=== PATIENT | female | born 1950 | race Caucasian/White ===

== ENCOUNTER 2016-12-21 13:58 | Emergency (ER) | payer BC ==
[~2016-12-21] VITALS: Ht 162.6 cm; Wt 71.9 kg
[~2016-12-21 13:58] MED LIST: CALCTAB7 PO; CHOL200027 PO; CLB/200 PO; CLR10 PO; ESCI1TAB10 PO; PRAM0.129 PO; PROC1TAB5 PO
[2016-12-21 14:02] VITALS: TEMP 36.7; Ht 162.6 cm; Wt 71.9 kg
[2016-12-21 14:30] VITALS: O2SAT 100
--- NOTE | 2016-12-21 14:32 | EMERGENCY ROOM VISIT NOTE ---
History Report prepared by Vitaliy: Celio Umanzor Under the Supervision of: Dr. Song Coker M.D. First contact with patient: 14:25 Chief Complaint: SHORTNESS OF BREATH Stated Complaint: SOB, HEART RACING, HAD LAST CHEMO TUES Nursing Triage Summary: PT HERE WITH SOB SINCE THIS AM. PT STATES HAS HAD OCCASIONAL SOB WITH CHEMO TXS. HAS BEEN TAKING TREATMENTS SINCE AUGUST, JUST HAD LAST ONE THIS WEEK. HX OF RIGHT BREAST CA. LUMPECTOMY DENIES PAIN WITH DEEP BREATH. DENIES SWELLING IN LEGS. History of Present Illness The patient is a 66 year old female who presents to the Emergency Room with complaints of persistent shortness of breath that started this morning. The patient suffers from right sided breast cancer. She has been receiving chemotherapy treatments since August. Her last chemotherapy treatment was 4 days ago. She notes that she has had occasional shortness of breath with chemotherapy in the past. The patient denies chest pain, swelling in legs, urinary symptoms, difficulty with bowel movements, abdominal pain, and any additional associated symptoms. Source of History: patient Onset: This morning Position: other (Respiratory system ) Timing: other (Persistent ) Modifying Factors (Worsening): other (None) Associated Symptoms: No abdominal pain, No chest pain, No urinary symptoms Review of Systems All systems have been listed, reviewed, and are negative other than those previously mentioned. Please see Additional Medical History Sheet. Past Medical & Surgical Medical Problems: (1) Breast cancer Surgical Problems: (1) H/O: hysterectomy (2) History of total right knee replacement Family History No significant family history Social History Smoking Status: Never Smoker Alcohol Use: none Drug Use: none Marital Status: Housing Status: lives with significant other Occupation Status: unemployed Current/Historical Medications Scheduled Calcium Carbonate-Vitamin D W/ (Caltrate 600 Plus), 2 TABS PO DAILY Celecoxib (Celecoxib), 200 MG PO DAILY Cholecalciferol (Vitamin D-3), 2,000 INTER.UNIT PO DAILY Citalopram (Citalopram Hydrobromide), 40 MG PO DAILY Loratadine (Claritin), 10 MG PO DAILY Pramipexole Dihydrochloride (Pramipexole Dihydrochlori), 0.25 MG PO BID Scheduled PRN Prochlorperazine Maleate (Compazine), 10 MG PO Q6H PRN for Nausea or Vomiting Allergies Coded Allergies: Latex1 -Allergic Contact Dermititis (Verified Allergy, Severe, RASH, 09/10) SEVERE INFLAMMATION TO HELEN AREA FROM LATEX ALFRED CATHETER Bacitracin (Verified Allergy, Unknown, local skin irritation, 09/10/16) 'bubbled skin' Neomycin (Verified Allergy, Unknown, local skin irritation, 09/10/16) 'bubbled skin' Polymyxin B (Verified Allergy, Unknown, local skin irritation, 09/10/16) 'bubbled skin' Penicillins (Verified Adverse Reaction, Mild, n/v, 03/29/15) Physical Exam Vital Signs Date Time Temp Pulse Resp B/P Pulse Ox O2 Delivery O2 Flow Rate FiO2 12/21/16 16:54 115 16 118/79 98 Room Air 12/21/16 14:34 111 12/21/16 14:31 114 25 143/67 100 Room Air 12/21/16 14:30 100 Room Air 12/21/16 14:02 36.7 111 18 117/69 99 Room Air Physical Exam GENERAL: Patient awake, alert, oriented x 3. Patient follows commands. Patient does not appear toxic. Patient is adequately hydrated and well- nourished. SKIN: No erythema, pallor, cyanosis or rash HEENT: Normal head, pupils equal, reactive to light and accommodation. Ears normal. Oral cavity and posterior pharynx appear normal. Neck: Without adenopathy, no neck vein distention. LUNGS: Clear to auscultation. No wheezes, no rales, no rhonchi. HEART: No murmurs. No gallops. No rubs ABDOMEN: No masses, no rebound, no hepatomegaly or splenomegaly. EXTREMITIES: No signs of trauma. No pedal or pretibial edema. No calf or thigh tenderness. NEUROLOGIC: Cranial nerves II-XII within normal limits. No gross motor sensory function deficits. Medical Decision & Procedures ER Provider Diagnostic Interpretation: Radiology results as stated below per my review and radiologist interpretation: TWO VIEW CHEST CLINICAL HISTORY: Dyspnea. FINDINGS: PA and lateral chest radiographs are compared to study dated 09/10/2016. Correlation is made with chest CT dictated 08/09/2014. A left subclavian central venous infusion port is unchanged in position. The cardiomediastinal silhouette is unremarkable. Chronic interstitial thickening is unchanged. No airspace consolidation or pleural effusion is identified. There is no pneumothorax. The skeletal structures are osteopenic. The bony thorax appears intact. IMPRESSION: No active disease in the chest. Electronically signed by: Estuardo Angulo M.D. 12/21/2016 4:48 PM Dictated Date/Time: 12/21/2016 4:47 PM CHEST CTA for PULMONARY ARTERIES CT DOSE: 379.45 mGycm HISTORY: Chest pain dyspnea TECHNIQUE: Multiaxial CT images of the chest were performed following the intravenous administration of contrast to evaluate the pulmonary arteries. Maximal intensity projection images were also obtained. COMPARISON STUDY: 08/09/2014 FINDINGS: There is a normal caliber thoracic aorta with no evidence for dissection. There is no evidence for pulmonary embolus. No pleural effusions. No pneumothorax. The liver and spleen are unremarkable. No mediastinal or hilar lymphadenopathy. The central airways are patent. The lungs are clear. IMPRESSION: No evidence for pulmonary embolus. Electronically signed by: Wilber Gasca M.D. 12/21/2016 4:59 PM Dictated Date/Time: 12/21/2016 4:56 PM Laboratory Results 12/21/16 15:15 Red Blood Count 3.36, Mean Corpuscular Volume 86.9, Mean Corpuscular Hemoglobin 29.5, Mean Corpuscular Hemoglobin Concent 33.9, Mean Platelet Volume 10.3, Neutrophils (%) (Auto) 93.4, Lymphocytes (%) (Auto) 2.5, Monocytes (%) (Auto) 0.7, Eosinophils (%) (Auto) 0.1, Basophils (%) (Auto) 0.2, Neutrophils # (Auto) 30.89, Lymphocytes # (Auto) 0.82, Monocytes # (Auto) 0.22, Eosinophils # (Auto) 0.02, Basophils # (Auto) 0.05 12/21/16 15:15 Test 12/21/16 15:15 12/21/16 15:25 White Blood Count 33.01 K/uL (4.8-10.8) Red Blood Count 3.36 M/uL (4.2-5.4) Hemoglobin 9.9 g/dL (12.0-16.0) Hematocrit 29.2 % (37-47) Mean Corpuscular Volume 86.9 fL (80-100) Mean Corpuscular Hemoglobin 29.5 pg (25-34) Mean Corpuscular Hemoglobin Concent 33.9 g/dl (32-36) Platelet Count 142 K/uL (130-400) Mean Platelet Volume 10.3 fL (7.4-10.4) Neutrophils (%) (Auto) 93.4 % Lymphocytes (%) (Auto) 2.5 % Monocytes (%) (Auto) 0.7 % Eosinophils (%) (Auto) 0.1 % Basophils (%) (Auto) 0.2 % Neutrophils # (Auto) 30.89 K/uL (1.4-6.5) Lymphocytes # (Auto) 0.82 K/uL (1.2-3.4) Monocytes # (Auto) 0.22 K/uL (0.11-0.59) Eosinophils # (Auto) 0.02 K/uL (0-0.5) Basophils # (Auto) 0.05 K/uL (0-0.2) RDW Standard Deviation 54.9 fL (36.4-46.3) RDW Coefficient of Variation 17.3 % (11.5-14.5) Immature Granulocyte % (Auto) 3.1 % Immature Granulocyte # (Auto) 1.01 K/uL (0.00-0.02) Hyposegmented Neutrophils 2+ Prothrombin Time 11.0 SECONDS (9.0-12.0) Prothromb Time International Ratio 1.0 (0.9-1.1) Activated Partial Thromboplast Time 22.9 SECONDS (21.0-31.0) Partial Thromboplastin Ratio 0.9 Anion Gap 9.0 mmol/L (3-11) Est Creatinine Clear Calc Drug Dose 81.5 ml/min Estimated GFR () 106.7 Estimated GFR (Non- 92.1 BUN/Creatinine Ratio 30.0 (10-20) Calcium Level 8.1 mg/dl (8.5-10.1) Total Bilirubin 0.4 mg/dl (0.2-1) Aspartate Amino Transf (AST/SGOT) 17 U/L (15-37) Alanine Aminotransferase (ALT/SGPT) 31 U/L (12-78) Alkaline Phosphatase 147 U/L (45-117) Troponin I 0.022 ng/ml (0-0.045) Total Protein 6.1 gm/dl (6.4-8.2) Albumin 3.3 gm/dl (3.4-5.0) Globulin 2.8 gm/dl (2.5-4.0) Albumin/Globulin Ratio 1.2 (0.9-2) Bedside D-Dimer > 450 ng/mlFEU (0-450) Laboratory results as stated above per my review. ECG Indication: SOB/dyspnea Rate (beats per minute): 107 Rhythm: sinus tachycardia Findings: no acute ischemic change, no ectopy ED Course 1426: Past medical records reviewed. The patient was evaluated in room B12. A complete history and physical examination was performed. 1723: I spoke with Dr. Velasquez (Oncology). He states that the significant elevation of the patient's white blood cell count is consistent with recent treatment of Neupogen. 1731: I discussed the patient's case with the patient and her . They are agreeable with the treatment plan. The patient is ready to be discharged home. Medical Decision Nurses notes reviewed. Medical history sheet reviewed. Differential diagnosis includes but is not limited to: Reaction to chemotherapy, reaction to medication , CHF, pneumonia, pulmonary embolism. The patient is here with shortness of breath. Multiple labs were obtained including a d-dimer which was elevated. CT of her chest was also obtained which revealed no PE. The patient does not have pneumonia. Cardiac markers are normal. EKG reveals no acute findings. The patient's pulse ox is 99-100% on room air. I believe her symptoms are secondary to medication reaction. The patient's white count is markedly elevated which is also related to her Neupogen. I discussed care with Dr. Velasquez over the phone. The patient will follow-up with oncology. Consults Time Called: 172 Consulting Physician: Dr. Velasquez (Oncology) Returned Call: [address] Velasquez (Oncology). He states that the significant elevation of the patient's white blood cell count is consistent with recent treatment of Neupogen. Impression Primary Impression: Medication reaction Additional Impressions: Leukocytosis History of breast cancer Anemia Scribe Attestation The scribe's documentation has been prepared under my direction and personally reviewed by me in its entirety. I confirm that the note above accurately reflects all work, treatment, procedures, and medical decision making performed by me. Departure Information Dispostion Home / Self-Care Referrals Bre Reeves DO (PCP) Balaban, Edward P., D.O. Patient Instructions My [facility] Additional Instructions Continue all of your current medications as prescribed. Follow-up with oncology as scheduled. Problem Qualifiers
[2016-12-21] MEDS ORDERED: CITA40TA4 PO (15:29)
[2016-12-21] MEDS ORDERED: MRP25 PO (15:29)
[2016-12-21] MEDS ORDERED: CELE1CAP30 PO (15:29)
[2016-12-21 15:53] LABS: HEMATOCRIT 29.2 % (37-47); MEAN CELL VOLUME 86.9 fL (80-100); MEAN CORPUSCULAR HEMOGLOBIN 29.5 pg (25-34); MEAN CORPUSCULAR HGB CONC 33.9 g/dl (32-36); MEAN PLATELET VOLUME 10.3 fL (7.4-10.4); PLATELET COUNT 142 K/uL (130-400); RED BLOOD COUNT 3.36 M/uL (4.2-5.4); WHITE BLOOD COUNT 33.01 K/uL (4.8-10.8)
[2016-12-21 15:57] LABS: PARTIAL THROMBOPLASTIN RATIO 0.9
[2016-12-21 16:00] LABS: CALCIUM 8.1 mg/dl (8.5-10.1); CREATININE 0.66 mg/dl (0.60-1.20); POTASSIUM 3.5 mmol/L (3.5-5.1)
[2016-12-21] MEDS ORDERED: OPTIRAY 320 IV PRN (16:00)
[2016-12-21 16:04] LABS: ALB/GLOB RATIO 1.2 (0.9-2)
[2016-12-21 16:22] LABS: BASO % 0.2 %; BASO ABS # 0.05 K/uL (0-0.2); COMPLETE YES; EOS % 0.1 %; HYPOSEGMENTED POLYS 2+; IG% 3.1 %; LYMPH % 2.5 %; LYMPH ABS # 0.82 K/uL (1.2-3.4); MONO % 0.7 %; NEUT % 93.4 %
--- NOTE | 2016-12-21 16:49 | DIAGNOSTIC IMAGING REPORT ---
TWO VIEW CHEST CLINICAL HISTORY: Dyspnea. FINDINGS: PA and lateral chest radiographs are compared to study dated 09/10/2016. Correlation is made with chest CT dictated 08/09/2014. A left subclavian central venous infusion port is unchanged in position. The cardiomediastinal silhouette is unremarkable. Chronic interstitial thickening is unchanged. No airspace consolidation or pleural effusion is identified. There is no pneumothorax. The skeletal structures are osteopenic. The bony thorax appears intact. IMPRESSION: No active disease in the chest. Electronically signed by: Estuardo Angulo M.D. 12/21/2016 4:48 PM Dictated Date/Time: 12/21/2016 4:47 PM
--- NOTE | 2016-12-21 17:01 | DIAGNOSTIC IMAGING REPORT ---
CHEST CTA for PULMONARY ARTERIES CT DOSE: 379.45 mGycm HISTORY: Chest pain dyspnea TECHNIQUE: Multiaxial CT images of the chest were performed following the intravenous administration of contrast to evaluate the pulmonary arteries. Maximal intensity projection images were also obtained. COMPARISON STUDY: 08/09/2014 FINDINGS: There is a normal caliber thoracic aorta with no evidence for dissection. There is no evidence for pulmonary embolus. No pleural effusions. No pneumothorax. The liver and spleen are unremarkable. No mediastinal or hilar lymphadenopathy. The central airways are patent. The lungs are clear. IMPRESSION: No evidence for pulmonary embolus. Electronically signed by: Wilber Gasca M.D. 12/21/2016 4:59 PM Dictated Date/Time: 12/21/2016 4:56 PM
[2016-12-21 17:58] VITALS: BP 126/82; PULSE 98; O2SAT 98
[2017-04-05] MEDS ORDERED: FMR25 PO (08:33)
== END 2016-12-21 17:59 | disposition home or self-care (01) ==
LOC: C.EDB 14:00
DX: T88.7XXA Unspecified adverse effect of drug or medicament, initial encounter (principal); D72.829 Elevated white blood cell count, unspecified; C50.911 Malignant neoplasm of unspecified site of right female breast; D64.9 Anemia, unspecified; Z90.710 Acquired absence of both cervix and uterus; Z96.651 Presence of right artificial knee joint; Z91.040 Latex allergy status; Z88.1 Allergy status to other antibiotic agents; Z88.0 Allergy status to penicillin

== ENCOUNTER → 2016-12-28 | Outpatient (CLI) | payer BC ==
[~2016-12-28] MED LIST changes: +CELE1CAP30 PO; +CITA40TA4 PO; -CLB/200 PO; -ESCI1TAB10 PO; +FMR25 PO; +GADAVIST IV PRN; +MRP25 PO; -PRAM0.129 PO
--- NOTE | 2016-12-31 14:01 | MAMMOGRAPHY REPORT ---
BREAST MRI OF BOTH BREASTS : 12/28/2016 CLINICAL HISTORY: History of right breast cancer in the right 4:00 breast status post lumpectomy Oc tober 2015 and chemotherapy. She also had a discordant right 12:00 biopsy, with surgical excision O ct2015 yielding a radial sclerosing lesion and other benign findings. 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 COMPARISON: Comparison is made to exams dated: 07/10/2016 mammogram, 06/27/2016 mammogram, 07/02/2016 ultrasound, 07/10/2016 ultrasound biopsy, and 05/30/2015 mammogram - [facility]. Technique: The patient was placed prone in a dedicated breast imaging coil. Precontrast axial T1-we ighted, axial T2-weighted fat saturation, and axial T1-weighted fat saturation images were obtained. After the administration of 7 mL of Gadavist IV contrast, sequential T1-weighted fat saturation im ages were obtained. Subtraction images were obtained of the dynamic contrast enhanced sequences, an d 3-D reformations were performed. The Webflow software was used for kinetic analysis. Findings: Right breast: There is mild background parenchymal enhancement. There are expected postsurgical karina nges in the right breast from benign excisional biopsy in the right 12:00 breast and lumpectomy in t he right lower inner quadrant posteriorly. There is a circumscribed 1.8 cm mass which is mixed T2 h yperintensity and T1 hypointensity containing an internal fluid-fluid level, without postcontrast en hancement, consistent with a small postsurgical hematoma (series 4 image 26). There is also an gary gated T2 hyperintense, nonenhancing fluid collection measuring 2.3 x 0.7 cm at the lumpectomy bed in the right lower inner quadrant, consistent with a small postsurgical hematoma/seroma (series 4 imag e 43). In the right breast at 6:00 middle depth, there are at least 3 foci of enhancement which are in a so mewhat linear distribution extending towards the nipple. The most posterior focus measures 5 mm, th e middle focus measures 4 mm, and the most anterior focus measures 3 mm (series 501 images 77-82). The total extent of the foci measures approximately 2.5 cm in AP dimension. The foci demonstrate mi xed persistent and plateau kinetics. Left breast: There is mild background parenchymal enhancement. There are no suspicious enhancing ma sses or areas of abnormal enhancement within the left breast. There are postsurgical changes in the right axilla, without evidence of axillary adenopathy bilatera lly. The chest wall structures are negative. The visualized extramammary soft tissues are grossly unremarkable. IMPRESSION: ACR BI-RADS CATEGORY 0: INCOMPLETE EVALUATION: NEED ADDITIONAL IMAGING EVALUATION 1. Expected postsurgical changes in the right lower inner quadrant from prior lumpectomy and right 12:00 breast from prior benign excisional biopsy. 2. At least 3 enhancing foci in the right breast at 6:00 which are linear in distribution. The foc i are indeterminate for malignancy. Recommend diagnostic tomosynthesis mammograms of the right [address] st and second look ultrasound for further evaluation. If a corresponding abnormality is seen on ult rasound, ultrasound guided core needle biopsy could be performed at that time (45 minute time slot). If a corresponding abnormality is not seen on ultrasound/mammograms, then MRI guided biopsy may be needed. 3. No MRI evidence of malignancy in the left breast. Pamela Erwin M.D. 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
== END | disposition home or self-care (01) ==
LOC: C.MRI 10:42
PROVIDERS: ATTEND Surgery
DX: C50.311 Malignant neoplasm of lower-inner quadrant of right female breast (principal); N64.89 Other specified disorders of breast

== ENCOUNTER → 2017-01-09 | Outpatient (CLI) | payer BC ==
[~2017-01-09] MED LIST changes: -GADAVIST IV PRN
--- NOTE | 2017-01-09 10:06 | Discharge Instructions ---
Discharge Instructions Procedure Procedure Date: Jan 09, 2017. Reason for visit: Right Enhancing Foci/2ND Look Us Possible Bx. Discharge Discharge Date: Jan 09, 2017. Discharge Diagnosis: post right breast ultrasound guided core biopsy x 2 Instructions Activity Recommendations: Additional Limitations (see below) Return to School/Work: no limitations Recommended Home Diet: No Limitations Provider Instructions: ACTIVITY RECOMMENDATIONS: * No lifting, pushing, pulling or exercising the affected side for three days. RETURN TO SCHOOL/WORK: * You may return to work/school after the procedure, but do not perform any strenuous activities for 24 to 48 hours. MEDICATIONS: * Tylenol (two 325 mg) every four to six hours if needed for mild pain (if not allergic to Tylenol). DIET: * Resume previous diet. SPECIAL CARE INSTRUCTIONS: * Keep biopsy site dry for 24 hours. May shower after 24 hours, but do not soak (bathe) incision. * May remove Tegaderm (plastic patch) tomorrow AFTER showering. * Leave the steri-strips on for one week. Allow the steri-strips to fall off by themselves. If not off after one week, you may remove them. You may place a Bandaid crosswise over the strips, if desired. * Apply ice 10 minutes on and 10 minutes off as needed. * Wear a bra at bedtime to sleep more comfortably for 2-3 days. * Your referring physician should have the results after approximately 5 to 7 business days. * Call for unusual bleeding, fever, drainage, etc or if you have any questions call [phone] during normal business hours or after hours call Dr Mishra, . FOLLOW UP VISIT: Follow-up with Referring Physician as scheduled. Allergies Coded Allergies: Latex1 -Allergic Contact Dermititis (Verified Allergy, Severe, RASH, 09/10) SEVERE INFLAMMATION TO HELEN AREA FROM LATEX ALFRED CATHETER Bacitracin (Verified Allergy, Unknown, local skin irritation, 09/10/16) 'bubbled skin' Neomycin (Verified Allergy, Unknown, local skin irritation, 09/10/16) 'bubbled skin' Polymyxin B (Verified Allergy, Unknown, local skin irritation, 09/10/16) 'bubbled skin' Penicillins (Verified Adverse Reaction, Mild, n/v, 03/29/15) Rocco Begum Recommendations: Call your doctor if: * Temperature above 101 degrees * Pain not relieved by pain medicine ordered * There is increased drainage or redness from any incision * You have any unanswered questions or concerns. Your Doctors Instructions noted above were prepared by provider Delmsi Mishra. Patient Signature Section: Patient Instructions Signature Page Aislinn Que Patient (or Guardian) Signature/Date: I have read and understand the instructions given to me by my caregivers. Caregiver/RN/Doctor Signature/Date: The above-named patient and/or guardian has received patient instructions on this date. + Original Patient Signature Page (only) stays with chart. Please make copy for patient.
--- NOTE | 2017-01-09 12:48 | MAMMOGRAPHY REPORT ---
UNILATERAL RIGHT DIGITAL DIAGNOSTIC MAMMOGRAM TOMOSYNTHESIS: 01/09/2017 CLINICAL HISTORY: Status post ultrasound guided core needle biopsy 2 in the right breast 6:30 axis for a possible intraductal mass identified 1 cm from the nipple, and hypoechoic indeterminate mass i dentified 3 cm from the nipple. These lesions may possibly correlate with enhancing foci seen in th e approximate 6:00 right breast on recent bilateral breast MRI. Personal history of right breast ca ncer status post lumpectomy and chemotherapy. Patient presents prior to radiation therapy. Please refer to the report from right breast ultrasound guided core biopsy performed at the same stef e for full detail. IMPRESSION: POST PROCEDURE IMAGING FOR MARKER PLACEMENT Please refer to the report from right breast ultrasound guided core biopsy performed at the same stef e for full detail. Approximately 10% of breast cancers are not detected with mammography. A negative mammographic repor t should not delay biopsy if a clinically suggestive mass is present. Delmis Mishra M.D. ay/:01/09/2017 10:12:37 Veterinary Milk Specialist: Chikis KANG(Shagufta)(Shadia), [facility] BI-RADS Code: Post Procedure Imaging For Marker Placement
--- NOTE | 2017-01-10 15:00 | MAMMOGRAPHY REPORT ---
ULTRASOUND GUIDED BIOPSY RIGHT BREAST: 01/09/2017 CLINICAL HISTORY: Indeterminate hypoechoic solid-appearing masses in the 6:30 right breast located 1 cm from the nipple and 3 cm from the nipple. They are thought to correlate with approximately 2 of the 3 enhancing foci seen on recent breast MRI. Patient presents for ultrasound guided core needle biopsy. COMPARISON: Comparison is made to exams dated: 01/09/2017 ultrasound, 12/28/2016 breast MRI, 07/10/20 16 ultrasound biopsy, 07/02/2016 ultrasound, 07/10/2016 ultrasound biopsy, and 07/10/2016 mammogram - [facility]. PATIENT CONSENT: The procedure, risks and benefits were discussed with the patient and informed writ ten consent was obtained. Specific risks to this procedure include: bleeding, infection, sampling er ror, nontarget biopsy, puncture of adjacent structure, metal allergy and medication reaction. PROCEDURE DESCRIPTION: A time out was performed and the right breast was agreed as the site of biops y. The skin was prepped and draped in the usual sterile fashion. First the possible intraductal mas s in the 6:30 right breast, 1 cm from the nipple was identified and targeted for biopsy. Subcutaneou s and intraparenchymal 1% buffered lidocaine was administered as local anesthesia. A skin incision w as made. Through the incision, 4 samples were taken with a 14 gauge Achieve biopsy device. A ribbon -shaped metallic marker was placed at the biopsy site. Hemostasis was achieved after manual compress ion. The patient tolerated the procedure well and there was no immediate complication. Then the lobulated hypoechoic solid-appearing mass in the 6:30 right breast, 3 cm from the nipple wa s identified and targeted for biopsy. Subcutaneous and intraparenchymal 1% buffered lidocaine was ad ministered as local anesthesia. A skin incision was made. Through the incision, 4 samples were take n with a 14 gauge Achieve biopsy device. A ribbon-shaped metallic marker was placed at the biopsy si te. Hemostasis was achieved after manual compression. The patient tolerated the procedure well and t here was no immediate complication. Post procedure right CC and ML tomosynthesis images were obtained. There is a new ribbon-shaped met allic biopsy marker and no significant hematoma in the 6:30 middle one third of the breast, at the s ite of the biopsied possible intraductal mass. A wing shaped clip is seen more posteriorly within t he 6:30 axis. No significant postbiopsy hematoma is identified. Based on the final locations of th e biopsy marker clips, the biopsied lesions seen on ultrasound may possibly correlate with the MRI f indings. However, will assess once pathology results are available to see if an MRI biopsy will be warranted. IMPRESSION: ULTRASOUND GUIDED BIOPSY Status post ultrasound-guided core needle biopsy 2 in the 6:30 axis of the right breast, of hypoech oic masses seen on ultrasound thought to correlate with enhancing foci seen on recent MRI. The patient will receive notification of the biopsy results from her referring physician. Delmis Mishra M.D. ay/:01/09/2017 17:10:10 Continuing Education Dean: Chikis GOLDMAN)(Shadia), [facility]
--- NOTE | 2017-01-10 15:03 | MAMMOGRAPHY REPORT ---
ULTRASOUND OF BOTH BREASTS: 01/09/2017 CLINICAL HISTORY: Patient presents for second look ultrasound to evaluate for at least 3 enhancing f oci within a line within the 6:00 axis of the right breast seen on recent breast MRI. History of bi opsy-proven right breast cancer status post surgery and chemotherapy. Patient presents prior to rad iation therapy. COMPARISON: Comparison is made to exams dated: 12/28/2016 breast MRI, 07/10/2016 mammogram, 07/10/20 16 ultrasound biopsy, 07/02/2016 ultrasound, 06/27/2016 mammogram, and 05/30/2015 ultrasound - [facility]. FINDINGS: Targeted ultrasound was performed throughout the inferior right breast to evaluate for th e enhancing foci seen on recent breast MRI. Just lateral to the surgical scar from prior lumpectomy in the approximate 6:30 right breast, 3 cm from the nipple, is a lobulated hypoechoic solid-appeari ng mass measuring 4.4 x 2.6 x 4.9 mm. Closer to the nipple in the 6:30 axis approximately 1 cm from the nipple, another hypoechoic mass is identified. In the radial plane this mass appears to be wit hin the branching portions of a Y-shaped duct and could represent an intraductal process. Both of t hese lesions are thought to correlate with the enhancing foci seen on recent breast MRI and definiti ve characterization with tissue sampling is recommended. Ultrasound guided core needle biopsy 2 in the right breast was performed during the same diagnostic appointment. Please refer to a separate report for full detail. IMPRESSION: ACR BI-RADS CATEGORY 4B: INTERMEDIATE SUSPICION FOR MALIGNANCY - FOLLOW-UP RECOMMENDED Two hypoechoic solid-appearing masses are identified in the 6:30 right breast, 3 cm from the nipple and 1 cm from the nipple, that may possibly correlate with two of the enhancing foci seen on recent breast MRI. Definitive characterization with ultrasound guided core needle biopsy 2 is recommended . These results were discussed with the patient at the time of the exam. The biopsies were performed during the same appointment; please refer to a separate report for full detail. Delmis Mishra M.D. ay/:01/09/2017 17:03:12 Plastic Block Boiler Reliner: Dr. Delmis Mishra, [facility] letter sent: Abnormal 4/5 BI-RADS Code: ACR BI-RADS Category 4B: Intermediate Suspicion For Malignancy
--- NOTE | 2017-01-23 12:12 | CODING QUERY MEDICAL NECESSITY ---
CQSUPPORTING DIAGNOSIS NEEDED A supporting diagnosis is required for the test/procedure performed on this patient in order for us to be reimbursed by the patient's insurance. Please provide a supporting diagnosis for the following test/procedure listed below next to the test name along with your signature. *If there is no additional diagnosis for this patient that would support the following test/procedure please document that below next to the test/procedure. Test(s)/Procedure(s) that require a supporting diagnosis: DOS 01/09/17 PERCUTANEOUS IMAGE GUIDED BREAST BIOPSY Provider Signature: Date: Thank you Adriana Tillman Health Information Management Once completed, please kindly fax back to [phone] For questions please call [phone]
== END | disposition home or self-care (01) ==
LOC: C.MAMM 08:58
PROVIDERS: ATTEND Surgery
DX: D24.1 Benign neoplasm of right breast (principal); N64.9 Disorder of breast, unspecified; Z85.3 Personal history of malignant neoplasm of breast; Z92.21 Personal history of antineoplastic chemotherapy

== ENCOUNTER → 2017-02-19 | Outpatient (CLI) | payer BC ==
[~2017-02-19] MED LIST changes: -CLR10 PO
== END | disposition home or self-care (01) ==
LOC: C.RDSM 14:42
PROVIDERS: ATTEND Orthopaedic Surgery Sports Medicine
DX: Z96.651 Presence of right artificial knee joint (principal); C50.911 Malignant neoplasm of unspecified site of right female breast

== ENCOUNTER → 2017-04-05 | Outpatient (CLI) | payer BC ==
[2017-04-05 08:26] VITALS: BP 123/81; PULSE 76; TEMP 36.8; O2SAT 97
--- NOTE | 2017-04-05 11:36 | Radiation Oncology Follow-Up ---
Radiation Oncology Follow-Up Date of Visit Apr 05, 2017. (Marce Parra PA-C) Reason For Visit One-month follow-up and cancer survivorship care plan (Marce Parra PA-C) Radiation Completion Date 03/07/17 (Marce Parra PA-C) Diagnosis (1) Breast cancer Onset Date: 07/27/2016 Histology Subtype: ductal Stage: ll Permanent Comment: DIAGNOSIS: Right breast, invasive ductal carcinoma, grade 1 , ER/MS positive, Her2 negative, [id number], stage II -Lumpectomy/SLN - 07/27/2016 - Dr. Machado -Re-excision for negative margins - 08/31/2016 - Dr. Machado Oncotype DX score of 32 -AC/T chemotherapy - Dr. Gomez Status post completion of radiation therapy 03/07/2017. Received 6640 cGy Last Edited By: Marce Parra on Mar 19, 2017 08:19 (Marce Parra PA-C) History of Present Illness Ms. Grey is a 66-year-old female who initially presented with an abnormal mammogram on 06/27/2016 which showed an architectural distortion the right breast and a prominent right axillary lymph node. She did have a ultrasound of the right breast on 07/02/2016 which revealed an ill-defined hypoechoic shadowing mass in the 12 o'clock position in 4:30 o'clock position of the right breast. The patient subsequently underwent a ultrasound-guided biopsy on 2015 which revealed an ill-defined shadowing mass with associated distortion in the 12 o'clock position and 4:30 position as well as well as a morphologically normal right axillary lymph node. Pathology from the 4:30 biopsy revealed invasive ductal carcinoma that was grade 1 and was estrogen receptor positive, progesterone receptor positive and HER-2 receptor negative. The biopsy at the 12 o'clock position only revealed ductal hyperplasia. The right axillary lymph node biopsy revealed invasive carcinoma. The patient was subsequently referred to Dr. David Machado who did recommend a lumpectomy and sentinel lymph node biopsy. The patient underwent the lumpectomy and sentinel lymph node biopsy on 08/31/2016 which revealed invasive ductal carcinoma that measured 2 cm in the greatest dimension; the tumor was grade 1, there was no evidence of lymphovascular space invasion and the medial margin was positive. During the same procedure, Dr. Machado did perform a wide local excision of the 12:00 biopsy region which only revealed ductal hyperplasia. One of four sentinel lymph nodes were positive for macrometastatic adenocarcinoma with extranodal extension; one of the other lymph nodes did reveal isolated tumor cells. The patient was brought back to the operating room on 08/31/2016 for a reexcision which revealed no evidence of further malignancy in the margins were then subsequently deemed negative. The patient was subsequently referred to Dr. Sly Gomez from medical oncology. The patient did have an Oncotype DX study sent and the recurrence score was 32 which placed the patient in the high risk category. The patient elected to undergo adjuvant dose dense AC/T chemotherapy underneath the supervision of Dr. Sly Gomez. The patient is scheduled for one more cycle of Taxol chemotherapy on 12/18/2016. We are now seeing the patient in consultation to discuss the role of adjuvant radiation therapy. Overall, the patient is doing relatively okay. She is tolerating chemotherapy well with minimal side effects. She then completed radiation therapy. She received 6640 centigray utilizing conventional treatment. Treatment was completed 03/07/2017. (Marce Parra PA-C) Interim History She's been doing well over this past month. The mild irritation of the skin resolved without difficulty. She denies any pain of the breast. She has noted no change of the axilla. She's had no swelling of her arm. She was seen in medical oncology and has started Femara. She denies difficulty with taking the medication. Mammography has been scheduled for the end of May. She also has a recheck appointment at that time with Dr. Machado. (Marce Parra PA-C) Allergies Coded Allergies: Latex1 -Allergic Contact Dermititis (Verified Allergy, Severe, RASH, 09/10) SEVERE INFLAMMATION TO HELEN AREA FROM LATEX ALFRED CATHETER Bacitracin (Verified Allergy, Unknown, local skin irritation, 09/10/16) 'bubbled skin' Neomycin (Verified Allergy, Unknown, local skin irritation, 09/10/16) 'bubbled skin' Polymyxin B (Verified Allergy, Unknown, local skin irritation, 09/10/16) 'bubbled skin' Penicillins (Verified Adverse Reaction, Mild, n/v, 03/29/15) Home Medications Scheduled Calcium Carbonate-Vitamin D W/ (Caltrate 600 Plus), 2 TABS PO DAILY Celecoxib (Celecoxib), 200 MG PO DAILY Cholecalciferol (Vitamin D-3), 2,000 INTER.UNIT PO DAILY Citalopram (Citalopram Hydrobromide), 40 MG PO DAILY Letrozole (Femara), 1 TAB PO DAILY Pramipexole Dihydrochloride (Pramipexole Dihydrochlori), 0.25 MG PO BID Scheduled PRN Prochlorperazine Maleate (Compazine), 10 MG PO Q6H PRN for Nausea or Vomiting Review of Systems Gastrointestinal: Symptoms: WNL Oral: Symptoms: No Problems Respiratory: Symptoms: WNL Urinary: Symptoms: WNL Skin: Symptoms: No Problems Breast: Right Upper Arm Measurement: 28.0 Right Mid Arm Measurement: 23.5 Right Wrist Measurement: 15.8 Left Upper Arm Measurement: 28.5 Left Mid Arm Measurement: 23.0 Left Wrist Measurement: 16.0 Arm Dominence: Right Additional Notes: She completed a distress management report and answered "no" to all questions. (Marce Parra PA-C) Physical Exam Vital Signs Date Time Temp Pulse Resp B/P (MAP) Pulse Ox O2 Delivery O2 Flow Rate FiO2 04/05/17 08:26 36.8 76 16 123/81 97 Pain: Patient Pain Scale: 0 - 10 Initial Pain Intensity: 0.0 Fatigue: None General Appearance: no apparent distress Eyes: normal inspection, EOMI ENT: normal ENT inspection, hearing grossly normal Neck: no adenopathy, thyroid normal Respiratory/Chest: lungs clear, no respiratory distress, no accessory muscle use Breast: Breast examination reveals well-healed incisions of the right breast. There are mild fibrous changes in the central portion of the incision. There areas that have healed from the prior skin irritation. There are no masses or tenderness and no change of the axilla. Using the [facility] score cosmesis she has a good outcome. The left breast showed no masses or tenderness and no axillary adenopathy. Cardiovascular: regular rate, rhythm, no gallop, no murmur Extremities: no pedal edema Neurologic/Psychiatric: no motor/sensory deficits, alert, normal mood/affect Skin: warm/dry (Marce Parra PA-C) Laboratory Studies Test 01/09/17 19:56 02/08/17 08:30 Thyroid Stimulating Hormone (TSH) 1.540 uIu/ml (0.300-4.500) White Blood Count 2.73 K/uL (4.8-10.8) Red Blood Count 4.30 M/uL (4.2-5.4) Hemoglobin 12.0 g/dL (12.0-16.0) Hematocrit 38.1 % (37-47) Mean Corpuscular Volume 88.6 fL (80-100) Mean Corpuscular Hemoglobin 27.9 pg (25-34) Mean Corpuscular Hemoglobin Concent 31.5 g/dl (32-36) Platelet Count 175 K/uL (130-400) Mean Platelet Volume 9.7 fL (7.4-10.4) Neutrophils (%) (Auto) 61.2 % Lymphocytes (%) (Auto) 21.2 % Monocytes (%) (Auto) 11.7 % Eosinophils (%) (Auto) 5.5 % Basophils (%) (Auto) 0.4 % Neutrophils # (Auto) 1.67 K/uL (1.4-6.5) Lymphocytes # (Auto) 0.58 K/uL (1.2-3.4) Monocytes # (Auto) 0.32 K/uL (0.11-0.59) Eosinophils # (Auto) 0.15 K/uL (0-0.5) Basophils # (Auto) 0.01 K/uL (0-0.2) RDW Standard Deviation 44.1 fL (36.4-46.3) RDW Coefficient of Variation 13.6 % (11.5-14.5) Immature Granulocyte % (Auto) 0.0 % Immature Granulocyte # (Auto) 0.00 K/uL (0.00-0.02) Sodium Level 140 mmol/L (136-145) Potassium Level 3.8 mmol/L (3.5-5.1) Chloride Level 106 mmol/L (98-107) Carbon Dioxide Level 27 mmol/L (21-32) Anion Gap 7.0 mmol/L (3-11) Blood Urea Nitrogen 17 mg/dl (7-18) Creatinine 0.56 mg/dl (0.60-1.20) Estimated GFR () 112.6 Estimated GFR (Non- 97.2 BUN/Creatinine Ratio 29.8 (10-20) Random Glucose 86 mg/dl (70-99) Calcium Level 9.1 mg/dl (8.5-10.1) Magnesium Level 2.3 mg/dl (1.8-2.4) Total Bilirubin 0.4 mg/dl (0.2-1) Aspartate Amino Transferase (AST) 15 U/L (15-37) Alanine Aminotransferase (ALT) 26 U/L (12-78) Alkaline Phosphatase 84 U/L (45-117) Lactate Dehydrogenase 152 U/L (84-246) Total Protein 6.3 gm/dl (6.4-8.2) Albumin 3.7 gm/dl (3.4-5.0) Globulin 2.6 gm/dl (2.5-4.0) Albumin/Globulin Ratio 1.4 (0.9-2) (Marce Parra PA-C) Assessment & Plan Plan: She was also seen and examined by Dr. Leong. She'll continue follow-up with Dr. Machado and Dr. Gomez. She continues on Femara. Mammography has been scheduled for the end of May. Today we completed a cancer survivorship care plan. A copy of the document was given to the patient. We asked her to return to our office in approximately 6 months. She will be going to [place] for the winter. She'll schedule an appointment prior to leaving. She may call if she has any questions or concerns in the interim. (Marce Parra PA-C) I agree with note created by Marce Parra PA-C. I reviewed the patient's chart and information with her. I have examined and evaluated the patient. I reviewed relevant clinical information and answered the patient's and/or family' s questions. (Veeral. Leong MD) Total Time In Follow-Up I spent 20 minutes speaking to the patient and performing examination. I spent 20 minutes reviewing information, preparing the survivorship document, and completing this note. (Marce Parra PA-C) I spent 15 minutes examining and counseling the patient. (Veeral. Leong MD) Copy To David Machado M.D.; Sly Gomez MD; Bre Reeves, Problem Qualifiers (1) Breast cancer: Breast location: lower inner quadrant of breast Estrogen receptor status: positive Patient sex: female Laterality: right Qualified Codes: C50.311 - Malignant neoplasm of lower-inner quadrant of right female breast; Z17.0 - Estrogen receptor positive status [ER+]
== END | disposition home or self-care (01) ==
LOC: C.ONC 07:58
PROVIDERS: ATTEND Physician Assistant Medical
DX: Z08 Encounter for follow-up examination after completed treatment for malignant neoplasm (principal); Z92.3 Personal history of irradiation; Z85.3 Personal history of malignant neoplasm of breast

== ENCOUNTER → 2017-06-06 | Outpatient (CLI) | payer BC | END | disposition home or self-care (01) | LOC: C.MAMM 07:46 | PROVIDERS: ATTEND Internal Medicine Hematology & Oncology | DX: C50.919 Malignant neoplasm of unspecified site of unspecified female breast (principal); M85.851 Other specified disorders of bone density and structure, right thigh ==

== ENCOUNTER → 2017-06-28 | Outpatient (CLI) | payer BC ==
--- NOTE | 2017-07-01 12:36 | MAMMOGRAPHY REPORT ---
BILATERAL DIGITAL DIAGNOSTIC MAMMOGRAM TOMOSYNTHESIS WITH CAD AND TARGETED RIGHT ULTRASOUND: 7 CLINICAL HISTORY: History of right breast cancer status post lumpectomy June 2016 as well as chemo radiation. The patient also underwent two ultrasound-guided core needle biopsies of right breast mas ses December 2016 which yielded benign papillomas, and were felt to correspond with findings seen on a b reast MRI. The patient did not have excision of the papillomas. The patient denies any current comp laints. TECHNIQUE: Breast tomosynthesis in addition to standard 2D mammography was performed. Current study was also evaluated with a Computer Aided Detection (CAD) system. Bilateral CC and MLO 2-D and tomosy nthesis images and spot magnification right cc and ML views were obtained. COMPARISON: Comparison is made to exams dated: 07/02/2016 ultrasound, 06/27/2016 mammogram, 05/11/2015 mammogram, 01/25/2014 mammogram, 12/15/2010 mammogram, and 12/12/2010 mammogram - [facility]. BREAST COMPOSITION: The tissue of both breasts is heterogeneously dense, which may obscure small mas ses. FINDINGS: There are new expected postsurgical changes in the right lower inner quadrant posteriorly, with new density, architectural distortion, and surgical clips at the lumpectomy bed. Note that the lumpectomy bed is not completely included on the exam due to the far posterior location. Additional ly, there are post surgical changes in the right superior breast from prior surgical excision which y ielded radial scar. A linear scar marker denotes a scar on the right 12:00 breast. 2 biopsy marker clips are seen within the right central breast from prior ultrasound guided biopsies which yielded papillomas. There is diffuse right breast skin and trabecular thickening, likely due t o radiation therapy. Spot magnification views of the right breast demonstrate a small 2 mm cluster o f approximately 3-4 coarse heterogeneous calcifications in the right lateral breast at approximately 9:00 between the 2 biopsy marker clips, not clearly stable to prior exams. The options of biopsy evni nana short interval follow-up were discussed with the patient, and at this time we will follow the rohini cifications mammographically in 6 months. The remainder of both breasts are stable compared to prior exams, without suspicious masses, calcific ations, or areas of architectural distortion noted. Targeted ultrasound was performed of the area of the previously biopsied masses in the right breast. There is diffuse skin thickening of the right breast and increased heterogeneity of the breast paren chyma on ultrasound, likely due to radiation changes, which reduces the sensitivity of the ultrasound exam. In the right breast at 6:30, 3 cm fom the nipple, there is a subtle oval hypoechoic 3 x 4 mm mass, which may correspond with one of the biopsied masses which yielded a papilloma. The mass does not appear significantly changed compared to the December 2016 exam. The other biopsied mass is not jrodan james evident on this exam. No increasing or suspicious mass is noted. IMPRESSION: ACR-BI-RADS CATEGORY 3: PROBABLY BENIGN, TARGETED ULTRASOUND ACR-BI-RADS CATEGORY 3: PRO BABLY BENIGN Expected post treatment changes in the right breast. A small 2 mm cluster of 3-4 calcifications is n oted in the right 9:00 breast, for which follow-up is recommended. Recommend follow-up diagnostic to mosynthesis mammograms of the right breast in 6 months to reevaluate the calcifications and post jazz tment changes. 2. No mammographic evidence of malignancy in the left breast. Recommend follow-up in one year. 3. Two biopsy marker clips from ultrasound-guided biopsies of the right breast which yielded papillom as are again noted. Recommend follow-up bilateral breast MRI at this time, to reevaluate the enhanci ng findings seen within the right breast on prior MRI which prompted the second look ultrasound and s ubsequent biopsies. The patient has been verbally notified of the results. Approximately 10% of breast cancers are not detected with mammography. A negative mammographic report should not delay biopsy if a clinically suggestive mass is present. Pamela Erwin M.D. ah/:06/28/2017 14:57:38 Air Conditioning Supervisor: Tammi KANG(R)(M), [facility] letter sent: Follow Up Recommended 3 BI-RADS Code: ACR-BI-RADS Category 3: Probably Benign Ultrasound BI-RADS: ACR-BI-RADS Category 3: Pr obably Benign
== END | disposition home or self-care (01) ==
LOC: C.MAMM 10:22
PROVIDERS: ATTEND Surgery
DX: Z12.31 Encounter for screening mammogram for malignant neoplasm of breast (principal); R92.1 Mammographic calcification found on diagnostic imaging of breast; Z85.3 Personal history of malignant neoplasm of breast; Z08 Encounter for follow-up examination after completed treatment for malignant neoplasm